=== PATIENT | male | born 2000 | race Caucasian/White ===

== ENCOUNTER 2024-12-25 13:46 | Emergency (ER) | payer MEDICAID, SELFPAY ==
--- NOTE | 2024-12-25 13:46 | ECG_ITS ---
APPROVED REPORT Exam: Resting ECG HR:70 bpm ECG Measurements Heart Rate 70 AXES ND 144 P 68 QRSd 93 QRS 72 QT 361 T 61 QTc 382 Conclusion SINUS RHYTHM WITH SINUS ARRHYTHMIA NORMAL ECG UNCONFIRMED REPORT Electronically signed by : Rashad Small, 12/25/2024 16:51:59
[2024-12-25 13:47] VITALS: BP 152/92; PULSE 82; RESP 18; TEMP 36.6; O2SAT 99; BMI 19.3
--- NOTE | 2024-12-25 13:54 | CT_ITS ---
FINAL REPORT CLINICAL HISTORY: Stroke symptoms 4 days ago- visual loss, headache COMPARISON: none FINDINGS: CT NECK ANGIO, WITHOUT AND WITH CONTRAST TECHNIQUE: Thin section axial CT with contrast with multiplanar 3D MIP reconstruction. This study was performed with techniques to keep radiation doses as low as reasonably achievable, (ALARA). Individualized dose reduction techniques using automated exposure control or adjustment of mA and/or kV according to the patient''s size were employed. NASCET criteria and technique was utilized during interpretation. FINDINGS: Aortic arch: Arch shows no significant narrowing. Great vessel origins are widely patent. Right carotid: No significant stenosis is seen of the cervical common or internal carotid artery. Left carotid: No significant stenosis is seen of the cervical common or internal carotid artery. Vertebrals: Vertebral arteries are codominant. No significant stenosis is present. IMPRESSION: No significant stenosis of the cervical carotid arteries This study was performed using automated techniques to achieve radiation exposure as low as reasonably Reviewed, Interpreted and Dictated by Ara Wen MD Transcribed by Ella Fabian Authenticated and [facility]
--- NOTE | 2024-12-25 13:54 | CT_ITS ---
FINAL REPORT CLINICAL HISTORY: Stroke like symptoms- visual disturbances, headach COMPARISON: none FINDINGS: CTA HEAD TECHNIQUE: Thin section axial CT with contrast with 3D MIP reconstruction This study was performed with techniques to keep radiation doses as low as reasonably achievable, (ALARA). Individualized dose reduction techniques using automated exposure control or adjustment of mA and/or kV according to the patient''s size were employed. FINDINGS: No aneurysm is seen. Major intracranial vessels are patent without significant stenosis. . IMPRESSION: Unremarkable This study was performed using automated techniques to achieve radiation exposure as low as reasonably achievable Reviewed, Interpreted and Dictated by Ara Wen MD Transcribed by Ella Fabian Authenticated and [facility]
--- NOTE | 2024-12-25 13:54 | CT_ITS ---
FINAL REPORT TECHNIQUE: Noncontrast exam This study was performed with techniques to keep radiation doses as low as reasonably achievable, (ALARA). Individualized dose reduction techniques using automated exposure control or adjustment of mA and/or kV according to the patient''s size were employed. CLINICAL HISTORY: fall, headstrike FINDINGS: No abnormal density is seen. Ventricles are normal. There is no hemorrhage. No mass effect is seen. Bone windows show no evidence of fracture. IMPRESSION: No acute findings Reviewed, Interpreted and Dictated by Ara Wen MD Transcribed by Debbie Diaz Authenticated and [facility]
--- NOTE | 2024-12-25 13:57 | ED_ITS ---
<Statement entered by Rashad Small MD - 12/25/24 16:38> I independently examined this patient. Neurovascularly intact for me and positive empty can test, likely rotator cuff pathology, but given his report of initial left arm and left leg weakness with chest pain, felt reasonable for dissection protocol and rule out. I independently interpreted those cross- sectional images to demonstrate no evidence of aortic dissection and confirmed by radiology final read. Multimodal pain control and PCP follow-up. I was consulted by the VIKKI, and we discussed the complexity of problems being addressed. I approved the treatment and management plan for this patient's care in the emergency department, thus performing a substantial portion of the medical decision making. Rashad Small MD Discharge Plan Disposition Patient Disposition: Home, Self-Care Referrals Follow up/Referrals: Provider,Referral, [Primary Care Provider, Medical] - See instructions Activity Restrictions/Add. Instructions Additional Instructions/Restrictions: Thank you for allowing us to care for you today. Fortunately your laboratory workup and imaging is reassuring. The CT scan of your head is normal. The CT scans of your head, neck, and chest are also normal. Your laboratory workup was normal. The x-ray of your left shoulder does not show any abnormality. There is concern you could have injured your rotator cuff. You should follow-up with your orthopedic surgeon or sports medicine doctor closer to home for follow-up as this diagnosis requires additional exam and possible MRI imaging. You may take ibuprofen and Tylenol for pain. Please return to an emergency department if you develop any weakness, facial asymmetry, word slurring, chest pain. Clinical Impressions Clinical Impression: Left arm pain Stand Alone Forms Stand Alone Forms: Work/School Release Print Language Print Language: Albanian Discharge ED Provider: Rashad Small General Adult HPI <RUSS Livingston - Last Filed: 12/25/24 16:34> General Chief complaint: Chest Pain Stated complaint: Chest Pain Time Seen by Provider: 12/25/24 13:48 Mode of Arrival: EMS Source of Information: Patient Description of Symptoms (Recalled from ER Triage Doc. by RN): Patient states he was at work and all of a sudden he started feeling some tenderness in left side of chest and numbness and tingling in left arm. Patient denies ever feeling anything like this before. Patient denies lifting anything heavy or exerting himself. History of Present Illness HPI narrative: This is a 24-year-old male presenting to the emergency department today for evaluation of multiple complaints. 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 He sat down and then noticed his left arm and left leg seemed weak and numb. Patient reports he was still able to ambulate despite this feeling. He denies having chest pain but does note he had pain if he pushed over top of the chest. His vein changes resolved quickly and he reports they are no longer there. He denies any shortness of breath. Patient reports decreased sensation in his left upper and lower extremities but has not had motor change. He denies headache, confusion, dizziness. Patient is a smoker. No recent cough. Patient does report some occasional shoulder pain which is secondary to his job and physical demand. Otherwise healthy. Related Data Allergies Allergy/AdvReac Type Severity Reaction Status Date / Time No Known Allergies Allergy Verified 12/25/24 13:53 [facility] <RUSS Livingston - Last Filed: 12/25/24 16:34> [facility] Disclaimer: The information contained in this section may have been updated after the patient was seen, as this information can be updated by other users. Social History Smoking Status: Current every day smoker alcohol intake: current current occupational status: employed Travel in the last 8 weeks?: None <RUSS Livingston - Last Filed: 12/25/24 16:34> ROS Obtained: Yes Systems reviewed as appropriate & no additional complaints except as documented Physical Exam <RUSS Livingston - Last Filed: 12/25/24 16:34> General General appearance: alert and in no apparent distress Comment: Well-appearing, no acute distress. Sitting comfortably on hospital stretcher. Head Head exam: atraumatic and normocephalic Eye Eye exam: Present normal appearance, PERRL and EOMI; Absent nystagmus ENT ENT exam: Present normal exam Neck Neck exam: Present normal inspection and full ROM Chest Chest inspection: Present normal inspection and symmetric chest wall rise; Absent tenderness Expanded Chest Exam Comment: No abnormalities on exam of the chest. Respiratory Respiratory exam: Present normal lung sounds bilaterally; Absent respiratory distress Cardiovascular Cardiovascular exam: Present regular rate and normal rhythm Abdominal Exam Abdominal exam: Present soft; Absent distention or tenderness Expanded Upper Extremity Exam Left: Shoulder exam: Present normal inspection and full ROM; Absent tenderness Comment: Patient has bilateral 5/5 strength the bilateral upper and lower extremities. No deficits. Patient reports decree sensation to the left hand as compared to the right. Radial and ulnar pulses 2+ and equal bilaterally. Left shoulder has normal range of motion. Positive empty can test. Back Exam Back exam: Present normal inspection and full ROM Neurological Exam Neurological exam: Present alert, oriented X3, CN II-XII intact, normal gait and reflexes normal Expanded Neurological Exam Patient oriented to: Present person, place and time Speech: Present fluid speech; Absent receptive aphasia or expressive aphasia Cranial nerves: Normal: EOM function (II, III, IV, ), facial sensation (V), facial palsy (VII), spinal accessory function (XI) and tongue deviation (XII) Cerebellar function: Normal: finger to nose and heel to cordero Cerebellar function: normal gait Motor strength - LUE: 5/5 Motor strength - RUE: 5/5 Motor strength - LLE: 5/5 Motor strength - RLE: 5/5 Upper motor neuron exam: Normal: soumya neglect and pronator drift Sensory exam upper extremity: Normal: 2 point discrimination Sensory exam lower extremity: Normal: light touch and 2 point discrimination Coma scale eye opening: Spontaneous Coma scale motor response: Obeys commands Coma scale verbal response: Oriented Coma scale total: 15 Psychiatric Psychiatric exam: Present normal affect and normal mood <Rashad Small MD - Last Filed: 12/25/24 16:22> Expanded Neurological Exam Coma scale total: 15 Medical Decision Making <RUSS Livingston - Last Filed: 12/25/24 16:34> Medical Records Screening: Per USPSTF and CDC recommendations, given the prevalence of disease in our region, it is our hospital?s policy to screen for HIV and viral Hepatitis for all patients aged 18 and over and those with ongoing risk factors. Nate Inquiry Pt receiving controlled substance: No Vital Signs: 12/25/24 13:47 12/25/24 14:01 Temperature 97.9 F Temperature Source Oral Pulse Rate 84 Pulse Rate [Right Brachial] 82 Respiratory Rate 18 Blood Pressure 144/68 H Blood Pressure [Right Arm] 152/92 H Blood Pressure Mean [Right Arm] 112 Blood Pressure Source [Right Arm] Automatic Cuff Blood Pressure Position [Right Arm] Sitting 02 Sat by Pulse Oximetry 99 98 Oxygen Delivery Method Room Air Lab Data Lab Results 12/25/24 13:49: WBC 9.9, RBC 4.70, Hgb 14.6, Hct 41.2 L, MCV 87.7, MCH 31.1, MCHC 35.4, RDW 12.4, Plt Count 379, MPV 9.3, Neut % (Auto) 48.5, Lymph % (Auto) 40.7, Blackford % (Auto) 6.5, Eos % (Auto) 3.2, Baso % (Auto) 0.8, Neut # (Auto) 4.8, Lymph # (Auto) 4.0, Blackford # (Auto) 0.6, Eos # (Auto) 0.3, Baso # (Auto) 0.1, Sodium 136, Potassium 3.5, Chloride 102, Carbon Dioxide 27, Anion Gap 10.5, BUN 5 L, Creatinine 0.70, Estimated Creat Clear 143, Estimated GFR 141, Est GFR ( Amer) 171, Glucose 94, Calcium 9.5, Total Bilirubin 0.4, AST 49, ALT 86 H, Alkaline Phosphatase 93, Troponin I < 0.01, Total Protein 7.4, Albumin 4.6, Globulin 2.8, Albumin/Globulin Ratio 1.6 12/25/24 13:49 12/25/24 13:49 Orders (Tests/Meds): ED MEDICATIONS Generic Name Dose Route Start Last Admin Trade Name Freq PRN Reason Stop Dose Admin Sodium Chloride 10 ml 12/25/24 14:20 12/25/24 14:21 Sodium Chloride 0.9% 10ml Syr (Rad Only) IV 01/24/25 14:19 10 ml NEEDED PRN Administration Maintain IV Site Discontinued Medications Generic Name Dose Route Start Last Admin Trade Name Freq PRN Reason Stop Dose Admin Sodium Chloride 1,000 mls @ 999 mls/hr 12/25/24 14:00 12/25/24 16:08 Sod Chlor 0.9% 1000ml Bag IV 12/25/24 15:00 Infused .Q1H1M ONE Infusion Iopamidol 160 ml 12/25/24 14:20 12/25/24 14:21 Iopamidol-370 (76%);100ml Bottle IV 12/25/24 14:21 160 ml ONCE ONE Administration Ketorolac Tromethamine 15 mg 12/25/24 16:22 12/25/24 16:31 Ketorolac 15mg/Ml Vial IV 12/25/24 16:23 15 mg ONCE ONE Administration Sodium Chloride 1,000 ml 12/25/24 13:54 12/25/24 14:03 Sodium Chloride 0.9% 500ml Bag IV 12/25/24 13:55 Not Given ONCE ONE Sodium Chloride 50 ml 12/25/24 14:20 12/25/24 14:21 0.9 % Sodium Chloride 50 Ml Vial IV 12/25/24 14:21 50 ml ONCE ONE Administration ORDERS Category Date Time Status CT angio head Stat Cat Scan 12/25/24 13:[address] angio neck Stat Cat Scan 12/25/24 13:[address] head/brain wo con Stat Cat Scan 12/25/24 13:54 Completed CTA Chest [CT angio chest - dissection] Stat Cat Scan 12/25/24 14:01 Completed Shoulder XR left minimum 2 views [XR shoulder LT min 2V Exams 12/25/24 14:12 Completed ] Stat CBC w/Auto Diff [Complete Blood Count Auto Diff] Stat Lab 12/25/24 13:49 Completed CMP [Comprehensive Metabolic Panel] Stat Lab 12/25/24 13:49 Completed Trop I [Troponin I] Stat Lab 12/25/24 13:49 Completed Troponin I Q3H Lab 12/25/24 17:00 Ordered Troponin I Q3H Lab 12/25/24 20:00 Ordered Medical Decision Narrative: In summary, this is a 24-year-old male presenting to the emergency department today after having 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 Patient reports he was taking his sweatshirt off when he noticed veins in his chest that seemed larger than normal. He sat down, took a break, then developed left upper and lower extremity weakness. Despite feeling weak he reports he was still able to ambulate and hold onto objects. This has not happened in the past. Patient reports the vessels he was able to his chest resolved quickly. He denies any chest pain, shortness of breath, cough, recent illness. He is a smoker. On exam patient is well-appearing and in no acute distress. Vital signs are normal. Patient is alert and oriented with a reassuring neurologic exam.Patient has bilateral 5/5 strength the bilateral upper and lower extremities. No deficits. Patient reports decreased sensation to the left hand as compared to the right. Radial and ulnar pulses 2+ and equal bilaterally. Upper and lower reflexes are normal and equal bilaterally. Left shoulder has normal range of motion. Positive empty can test. Differential diagnoses include but are not limited to aortic dissection, CVA, muscle strain, rotator cuff injury, pulmonary embolism, among others. Will obtain EKG, laboratory workup including CBC, CMP, troponins. Will obtain CT head without contrast, CTA of the head, neck, and chest. Will obtain left shoulder x-ray. Laboratory workup reviewed. CBC normal with no anemia or leukocytosis. CMP nonactionable. Troponin negative. 1615 On reassessment patient remains well-appearing and in no acute distress. Patient reports complete resolution in symptoms and does not have any decreased sensation to the left upper extremity at this time. Strength remains 5 out of 5 bilaterally in the upper and lower extremities. CT of the head without contrast reveals no acute intracranial abnormality. CTA of the head, neck, and chest are normal. Left shoulder x-ray without acute abnormalities. Patient continues to remain well and has not complained of pain. He denies any chest pain or shortness of breath. He continues to ambulate normally and without difficulty. Patient will follow-up with an orthopedist in his town for follow-up of his shoulder pain. If patient develops any weakness, word slurring, numbness, chest pain, or shortness of breath, he will return to the emergency department. Patient feels comfortable with our treatment and discharge plan and all questions have been answered at this time. <Rashad Small MD - Last Filed: 12/25/24 16:22> Vital Signs: 12/25/24 13:47 12/25/24 14:01 Temperature 97.9 F Temperature Source Oral Pulse Rate 84 Pulse Rate [Right Brachial] 82 Respiratory Rate 18 Blood Pressure 144/68 H Blood Pressure [Right Arm] 152/92 H Blood Pressure Mean [Right Arm] 112 Blood Pressure Source [Right Arm] Automatic Cuff Blood Pressure Position [Right Arm] Sitting 02 Sat by Pulse Oximetry 99 98 Oxygen Delivery Method Room Air Lab Data Lab Results 12/25/24 13:49: WBC 9.9, RBC 4.70, Hgb 14.6, Hct 41.2 L, MCV 87.7, MCH 31.1, MCHC 35.4, RDW 12.4, Plt Count 379, MPV 9.3, Neut % (Auto) 48.5, Lymph % (Auto) 40.7, Blackford % (Auto) 6.5, Eos % (Auto) 3.2, Baso % (Auto) 0.8, Neut # (Auto) 4.8, Lymph # (Auto) 4.0, [place] # (Auto) 0.6, Eos # (Auto) 0.3, Baso # (Auto) 0.1, Sodium 136, Potassium 3.5, Chloride 102, Carbon Dioxide 27, Anion Gap 10.5, BUN 5 L, Creatinine 0.70, Estimated Creat Clear 143, Estimated GFR 141, Est GFR ( Amer) 171, Glucose 94, Calcium 9.5, Total Bilirubin 0.4, AST 49, ALT 86 H, Alkaline Phosphatase 93, Troponin I < 0.01, Total Protein 7.4, Albumin 4.6, Globulin 2.8, Albumin/Globulin Ratio 1.6 Orders (Tests/Meds): ED MEDICATIONS Generic Name Dose Route Start Last Admin Trade Name Freq PRN Reason Stop Dose Admin Sodium Chloride 10 ml 12/25/24 14:20 12/25/24 14:21 Sodium Chloride 0.9% 10ml Syr (Rad Only) IV 01/24/25 14:19 10 ml NEEDED PRN Administration Maintain IV Site Discontinued Medications Generic Name Dose Route Start Last Admin Trade Name Freq PRN Reason Stop Dose Admin Sodium Chloride 1,000 mls @ 999 mls/hr 12/25/24 14:00 12/25/24 16:08 Sod Chlor 0.9% 1000ml Bag IV 12/25/24 15:00 Infused .Q1H1M ONE Infusion Iopamidol 160 ml 12/25/24 14:20 12/25/24 14:21 Iopamidol-370 (76%);100ml Bottle IV 12/25/24 14:21 160 ml ONCE ONE Administration Ketorolac Tromethamine 15 mg 12/25/24 16:22 12/25/24 16:31 Ketorolac 15mg/Ml Vial IV 12/25/24 16:23 15 mg ONCE ONE Administration Sodium Chloride 1,000 ml 12/25/24 13:54 12/25/24 14:03 Sodium Chloride 0.9% 500ml Bag IV 12/25/24 13:55 Not Given ONCE ONE Sodium Chloride 50 ml 12/25/24 14:20 12/25/24 14:21 0.9 % Sodium Chloride 50 Ml Vial IV 12/25/24 14:21 50 ml ONCE ONE Administration ORDERS Category Date Time Status CT angio head Stat Cat Scan 12/25/24 13:[address] angio neck Stat Cat Scan 12/25/24 13:[address] head/brain wo con Stat Cat Scan 12/25/24 13:54 Completed CTA Chest [CT angio chest - dissection] Stat Cat Scan 12/25/24 14:01 Completed Shoulder XR left minimum 2 views [XR shoulder LT min 2V Exams 12/25/24 14:12 Completed ] Stat CBC w/Auto Diff [Complete Blood Count Auto Diff] Stat Lab 12/25/24 13:49 Completed CMP [Comprehensive Metabolic Panel] Stat Lab 12/25/24 13:49 Completed Trop I [Troponin I] Stat Lab 12/25/24 13:49 Completed Troponin I Q3H Lab 12/25/24 17:00 Ordered Troponin I Q3H Lab 12/25/24 20:00 Ordered ECG Data Tracing #1: Independently interpreted by myself demonstrate normal sinus rhythm with a sinus arrhythmia with no obvious acute ischemic ST changes. No delta wave. Intervals within normal limits otherwise Critical Care <RUSS Livingston - Last Filed: 12/25/24 16:34> Critical Care Time Critical Care Time: No
[2024-12-25 14:01] VITALS: BP 144/68; PULSE 84; O2SAT 98
--- NOTE | 2024-12-25 14:01 | CT_ITS ---
FINAL REPORT TECHNIQUE: Thin section axial CT with contrast with multiplanar reconstruction This study was performed with techniques to keep radiation doses as low as reasonably achievable, (ALARA). Individualized dose reduction techniques using automated exposure control or adjustment of mA and/or kV according to the patient''s size were employed. CLINICAL HISTORY: Chest pain FINDINGS: Pulmonary vessels enhance in normal fashion without evidence of embolism. Thoracic aorta shows no dissection or aneurysm. No pulmonary mass or infiltrate is present. There is no significant pleural effusion. There is no significant pericardial effusion. There is soft tissue density in the anterior mediastinum compatible with normal thymic tissue. No mediastinal or hilar adenopathy is present. No rib or sternal fracture is identified. Limited images of the upper abdomen reveal mild right hydronephrosis. The solid organs are otherwise unremarkable. IMPRESSION: No acute thoracic findings. Incidental mild right hydronephrosis. Reviewed, Interpreted and Dictated by Ara Wen MD Transcribed by Debbie Diaz Authenticated and [facility]
[2024-12-25 14:03] LABS: Hematocrit 41.2 % (42.0-52.0); Hemoglobin 14.6 g/dL (14.1-18.0); Immature Granulocytes % 0.3 %; Mean Corpuscular HGB Conc 35.4 g/dL (31.8-35.4); Mean Corpuscular Hemoglobin 31.1 pg (27.0-31.2); Mean Corpuscular Volume 87.7 fl (80-94); Nucleated Red Blood Cells % 0 %; Platelet Count 379 K/mm3 (142-424); Red Blood Count 4.70 M/mm3 (4.60-6.20); Red Cell Distribution Width-SD 39.8 fL; White Blood Count 9.9 K/mm3 (4.8-10.8)
[2024-12-25] MEDS: 0.9 % SODIUM CHLORIDE 1000ML 1,000 ML 999 ML IV (14:03)
--- NOTE | 2024-12-25 14:12 | XR_ITS ---
FINAL REPORT CLINICAL HISTORY: left shoulder pain COMPARISON: None FINDINGS: LEFT SHOULDER: Two views of the left shoulder show no evidence of acute displaced fracture or dislocation of the visualized bony architecture. The joint spaces appear normal. IMPRESSION: Unremarkable exam. Reviewed, Interpreted and Dictated by Ara Wen MD Transcribed by Mily Shepherd Authenticated and [facility]
[2024-12-25 14:16] LABS: Alanine Aminotransferase 86 U/L (12-78); Albumin Level 4.6 g/dl (3.5-5.0); Albumin/Globulin Ratio 1.6 (1.1-1.8); Alkaline Phosphatase 93 U/L (38-126); Anion Gap 10.5 mEq/L (5-15); Aspartate Amino Transferase 49 U/L (17-59); Bilirubin,Total 0.4 mg/dl (0.2-1.3); Blood Urea Nitrogen 5 mg/dl (9-20); Calcium 9.5 mg/dl (8.4-10.2); Carbon Dioxide 27 mmol/L (22.0-30.0); Chloride 102 mmol/L (98-107); Creatinine Clearance Estimated 143 mL/min (50-200); Creatinine,Serum 0.70 mg/dl (0.66-1.25); Estimated Glomerular Filt Rate 141 ml/min (>60); GFR (African American) 171 ML/MIN (>60); Globulin 2.8 g/dL (1.3-3.2); Glucose 94 mg/dl (74-100); Potassium 3.5 mmoL/L (3.5-5.1); Sodium 136 mmol/L (136-145); Total Protein,Serum 7.4 g/dl (6.3-8.2)
[2024-12-25] MEDS: SODIUM CHLORIDE 0.9% 10ML SYR (RAD ONLY) 10 ML IV (14:21)
[2024-12-25] MEDS: IOPAMIDOL-370 (76%);100ML BOTTLE 160 ML IV (14:21)
[2024-12-25] MEDS: 0.9 % SODIUM CHLORIDE 50 ML VIAL IV (14:21)
--- OUTSIDE RECORDS SUMMARY | 2024-12-25 14:24 | XMS_ITS | Patient Health Record ---
Author Organization [facility] Address [address] [place] [address] Care Team Providers Care [employer] Vendor Name Role Phone BERONICA SINHA APRN Unavailable [phone] Reason For Referral No Information Plan Of Treatment No Information Insurance Providers Payer Name Payer Address Payer Phone Subscriber Number Group Number Insured Name Patient Relationship to Insured Coverage Start Date Coverage End Date Medicaid [employer] [address] [address] [place] [address] [id number] Edy Julien Self - patient is the insured
--- OUTSIDE RECORDS SUMMARY | 2024-12-25 14:24 | XMS_ITS | Encounter Summary ---
Author Organization [facility] Address [address] [place] [address] Care Team Providers Care In Process Inspector Name Role Phone Physician, No Primary Care Primary Care Provider Unavailable Encounter Details Date Type Department Care Team (Latest Contact Info) Description 04/05/2023 Transcribe Orders [facility] [address] [place] [address] Lanre Rowland MD [address] [facility] [address] [place] [address] Diarrhea, unspecified type (Primary Dx) Social History Tobacco Use Types Packs/Day Years Used Date Smoking Tobacco: Every Day Cigarettes Smokeless Tobacco: Never Alcohol Use Standard Drinks/Week Comments Yes 0 (1 standard drink = 0.6 oz pur e alcohol) occasinal Exercise Vital Sign Answer Date Recorde d On average, how many days pe r week do you engage in moderate to strenuous exercise (like a brisk walk)? 0 days 04/04/2023 On average, how many minutes do you engage in exercise at this level? 0 min 04/04/2023 PRAPARE - Transportation Answer Date Re corded In the past 12 months, has l ack of transportation kept you from medical appointments or from getting medications? No 03/17 In the past 12 months, has l ack of transportation kept you from meetings, work, or from getting things needed for daily living? No 04/04/2023 Safety and Environment Answer Date Abhay rded How often does anyone, gail holden family and friends, physically hurt you? Not on file 04/04/2023 How often does anyone, gail holden family and friends, insult or talk down to you? Not on file 04/04/2023 How often does anyone, gail holden family and friends, threaten you with harm? Not on file 04/04/2023 How often does anyone, gail holden family and friends, scream or curse at you?' Not on file 04/04/2023 Sex and Gender Information Value Date Recorded Sex Assigned at Male 04/10/2023 11:28 AM STREETS AND BUILDINGS DECORATOR Legal Sex Male 9:53 PM STREETS AND BUILDINGS DECORATOR Gender Identity Male 04/10/2023 11:28 AM STREETS AND BUILDINGS DECORATOR Sexual Orientation Not on file documented as of this encounter Plan of Treatment Pending Results Name Type Priority Associated Diagnoses Date /Time Paper lab order(s) received Lab Routine Diarrhea, unspecified type 04/05/2023 10:50 AM STREETS AND BUILDINGS DECORATOR documented as of this encounter Visit Diagnoses Diagnosis Diarrhea, unspecified type- Primary documented in this encounter Care Teams In Process Inspector Relationship Specialty Start Date End Date Physician, No Primary Care PCP - General Internal Medicine 03/30/23 documented as of this encounter Additional Source Comments IMPORTANT NOTICES REGARDING PATIENT RECORDS DISCLOSED THROUGH CARE EVERYWHERE:1. If the informationreleased to you contains information about AIDs or HIVtest results, that information has been disclosed to you from records whoseconfidentiality is protected by state law ([place].625). State law proh ibitsyou from making any further disclosure of such information relating to AIDS orHIV without the specific written consent of the person to whom such informationpertains, or as otherwise permitted by state law. A general authorization forthe release of medical or other information is NOT sufficient for this purpose.2. If the information released to you contains information about alcohol ordrug abuse diagnosis, treatment for such abuse, or referrals for treatment, andif the release was made by a program as defined in 42 CFR 2.11, thisinformation has been disclosed to you from records protected by Federalconfidentiality rules ( TheFederal rules restrict any use of the information to criminally investigate orprosecute any alcohol or drug abuse patient.3. If the information released to you contains information about a person'smental health or chemical dependency, you may not redisclose or otherwisereveal information concerning the mental health or chemical dependency of thatperson, beyond the purpose for which the disclosure was made, without firstobtaining that person's specific written consent to the redisclosure. [id number].[facility]
--- OUTSIDE RECORDS SUMMARY | 2024-12-25 14:24 | XMS_ITS | Clinical Summary ---
Author Organization [employer] Address [address] [place] [address] Care Team Providers Care Funding Coordinator Name Role Phone Physician, No Primary Care Primary Care Provider Unavailable Allergies No known active allergies Medications No known medications Active Problems Problem Noted Date Diagnosed Date Hematochezia 04/04/2023 Social History Tobacco Use Types Packs/Day Years Used Date Smoking Tobacco: Every Day Cigarettes Smokeless Tobacco: Never Tobacco Cessation:Ready to Q uit: Not Asked; Counseling Given: Not Answered Alcohol Use Standard Drinks/Week Comments Yes 0 [...] on file 04/04/2023 How often does anyone, inclreese holden family and friends, threaten you with harm? Not on file 04/04/2023 How often does anyone, inclu adina family and friends, scream or curse at you?' Not on file 04/04/2023 Sex and Gender Information Value Date Recorded Sex Assigned at Male 04/10/2023 11:28 AM RUBBER FLAP CUTTER Legal Sex Male 9:53 PM RUBBER FLAP CUTTER Gender Identity Male 04/10/2023 11:28 AM RUBBER FLAP CUTTER Sexual Orientation Not on file Last Filed Vital Signs Vital Sign Reading Time Taken Comments Blood Pressure 119/79 04/04/2023 10:28 AM RUBBER FLAP CUTTER Pulse 97 04/04/2023 10:28 AM RUBBER FLAP CUTTER Temperature 37.2 C (98.9 F) 03/30/2023 10:01 PM RUBBER FLAP CUTTER Respiratory Rate 18 03/30/2023 10:01 PM RUBBER FLAP CUTTER Oxygen Saturation 100% 03/30/2023 10:01 PM RUBBER FLAP CUTTER Inhaled Oxygen Concentration - - Weight 64.4 kg (142 lb) 04/04/2023 10:28 AM RUBBER FLAP CUTTER Height 180.3 cm (5' 11 ) 04/04/2023 10:28 AM RUBBER FLAP CUTTER Body Mass Index 19.8 04/04/2023 10:28 AM RUBBER FLAP CUTTER Plan of Treatment Health Maintenance Due Date Last Done Comments IMM Schedule: Meningococcal B (1 of 2 - Standard) 2018 IMM Schedule: Pneumococcal (0-49 yrs) (1 of 2 - PCV) 2021 04/13/2005, 01/06/2004, 03/24/2003, Additional history exists IMM Schedule: Diphtheria, Tetanus, and Pertussis (7 - Td or Tdap) 07/11/2023 07/10/2013, 06/28/2006, 04/13/2005, Additional history exists COVID-19 Vaccine ( season) 2024 IMM Schedule: Influenza (#1) 2024 IMM Schedule: Zoster (1 of 2) 2052 06/28/2006 IMM Schedule: Hepatitis B Completed 2005, 2002, 2002, Additional history exists IMM Schedule: Varicella Completed 06/28/2006, 07/16 IMM Schedule: Hepatitis A Completed 10/03/2018, IMM Schedule: Meningococcal ACWY (Menhibrix/Menomune) Completed 10/03/2018, 07/10/2013, 07/10/2013 IMM Schedule: RSV <20 Months Aged Out No longer eligible based on patient's age to complete this topic Care Teams Funding Coordinator Relationship Specialty Start Date End Date Physician, No Primary Care PCP - General Internal Medicine 03/30/23 Additional Source Comments IMPORTANT NOTICES REGARDING PATIENT [...] person's specific written consent to the redisclosure. [id number].[facility]
[2024-12-25 14:30] LABS: Troponin I < 0.01 ng/ml (0.00-0.034)
[2024-12-25] MEDS: KETOROLAC 15MG/ML VIAL 15 MG IV (16:31)
[2024-12-25 16:39] VITALS: BP 134/87; PULSE 74; RESP 16; TEMP 36.6; O2SAT 98
== END 2024-12-25 16:40 | disposition home or self-care (01) ==
PROVIDERS: Physician Assistant; Emergency Provider Emergency Medicine
DX: R07.9 Chest pain, unspecified (principal); M79.602 Pain in left arm
CPT/HCPCS: 70450; 70496; 70498; 71275; 73030; 80053; 84484; 85025; 93005; 96361; 96374; 99285; J1885; J7030; Q9967